=== PATIENT | female | born 1955 | race Asian ===

== ENCOUNTER 2018-07-20 08:36 | Day surgery (SDC) | payer OTHER ==
[~2018-07-20] VITALS: Ht 152.4 cm; Wt 66.0 kg
[2018-07-20 10:22] VITALS: Ht 152.4 cm; Wt 66.0 kg
[2018-07-20] MEDS ORDERED: ATOR40TA68 PO (10:29)
[2018-07-20] MEDS ORDERED: AMLO-147 PO (10:29)
[2018-07-20] MEDS ORDERED: BENA20TA4 PO (10:29)
[2018-07-20 10:48] VITALS: BP 156/83; PULSE 89; RESP 18
[2018-07-20] MEDS ORDERED: FENTAnyl 50 MCG/ML VIAL ONE (11:24)
[2018-07-20] MEDS ORDERED: MIDAZOLAM 1 MG/ML 2 ML INJ ONE ×2 (11:25)
[2018-07-20 11:55] VITALS: BP 120/68; RESP 20
== END 2018-07-20 12:31 | disposition home or self-care (01) ==
LOC: GIL 08:36
PROVIDERS: ATTEND Internal Medicine Gastroenterology
DX: Z12.11 Encounter for screening for malignant neoplasm of colon (principal); D12.5 Benign neoplasm of sigmoid colon
CPT/HCPCS: 45380; 88305; J2250; J3010; Z7610